=== PATIENT | female | born 1950 ===

== ENCOUNTER 2018-10-29 12:35 | Emergency (ER) | payer OTHER ==
[~2018-10-29] VITALS: Ht 170.2 cm; Wt 79.4 kg
[2018-10-29] MEDS ORDERED: ZOLOFT50 MG (13:14)
[2018-10-29] MEDS ORDERED: PERCOCET 5-3251 EACH (13:15)
[2018-10-29] MEDS ORDERED: URIN D.S. TABL1 EACH PO (19:05)
== END 2018-10-29 19:50 | disposition home or self-care (01) ==
LOC: ER 12:35
DX: R31.29 Other microscopic hematuria (principal)

== ENCOUNTER 2022-09-03 15:50 | Outpatient (CLI) | payer OTHER ==
[~2022-09-03 15:50] MED LIST: PERCOCET 5-3251 EACH; URIN D.S. TABL1 EACH PO; ZOLOFT50 MG
== END 2022-09-03 15:55 | disposition home or self-care (01) ==
LOC: RAD 15:50
PROVIDERS: ATTEND Internal Medicine Cardiovascular Disease
DX: M12.9 Arthropathy, unspecified (principal)

== ENCOUNTER 2022-09-06 09:15 | Outpatient (CLI) | payer OTHER | END 2022-09-06 12:18 | disposition home or self-care (01) | LOC: SONOGRAMA 09:15 | PROVIDERS: ATTEND Internal Medicine Cardiovascular Disease | DX: M12.9 Arthropathy, unspecified (principal) ==

== ENCOUNTER 2025-08-31 10:18 | Outpatient (CLI) | payer OTHER ==
[2025-08-31 11:07] LABS: BASO % 0.7 % (0.1-1.2); EOS # 0.13 (0.04-0.54); EOS % 2.9 % (0.7-7.0); LYMPH # 1.70 (1.18-3.74); LYMPH % 38.3 % (19.3-53.1); MEAN PLATELET VOLUME 9.40 fl (9.4-12.4); MONO # 0.30 (0.24-0.82); MONO % 6.8 % (4.7-12.5); NEUT # 2.27 (1.56-6.13); NEUT % 51.1 % (34.0-71.1); RED CELL DISTRIBUTION WIDTH 13.9 % (11.6-14.4)
[2025-08-31 11:17] LABS: URINE APPEARANCE Clear; URINE BILIRRUBIN Negative (NEGATIVE); URINE BLOOD Negative; URINE COLOR Yellow; URINE GLUCOSE Negative (NEGATIVE); URINE KETONE Negative (NEGATIVE); URINE LEUKOCYTE Trace; URINE NITRATE Negative; URINE PROTEIN Negative (NEGATIVE); URINE UROBILINOGEN 0.2 E.U./dl
[2025-08-31 11:33] LABS: ob POSITIVE (NEGATIVE)
[2025-08-31 11:35] LABS: URINE BACTERIA FEW; URINE MUCUS SCANT; URINE RBC 0-3 /HPF; URINE WBC 0-2 /hpf
[2025-08-31 11:53] LABS: ALT/SGPT 13.0 U/L (12-78); AST/SGOT 11.0 U/L (15-37); BILIRUBIN TOTAL 0.45 mg/dL (0.3-1.2); BUN CREA RATIO 18.0 (7.0-25.0); CHOL HDL RATIO 2.7 (0-5.0); CREATININE SERUM 0.73 mg/dL (0.55-1.02); GFR 78.15; GLOBULINA 3.8 G/DL (2.4-3.5); GLUCOSE FASTING 90.0 mg/dL (65-100); HDL 58.0 mg/dl (40-60); LDL 86.0 mg/dl (0-130); OSMOLALITY SERUM 279.0 MOSM/KG (275-295); T4 TOTAL 7.22 UG/DL (4.8-13.9); TSH 1.65 uIU/mL (0.358-3.74); VLDL 13.0 (0-39)
[2025-08-31 11:54] LABS: T3 TOTAL 0.99 ng/ml (0.846-2.02); VITAMIN D3 25 HYDROXY 33.29 ng/ml (30-120)
== END 2025-08-31 10:25 | disposition home or self-care (01) ==
LOC: LAB 10:18
PROVIDERS: ATTEND Internal Medicine Cardiovascular Disease
DX: E03.9 Hypothyroidism, unspecified (principal); I10 Essential (primary) hypertension; E78.2 Mixed hyperlipidemia; D64.0 Hereditary sideroblastic anemia; Z12.11 Encounter for screening for malignant neoplasm of colon; E55.9 Vitamin D deficiency, unspecified; M81.0 Age-related osteoporosis without current pathological fracture; R73.03 Prediabetes